=== PATIENT | female | born 1965 | race Caucasian/White ===

== ENCOUNTER 2018-09-14 07:26 | Emergency (ER) | payer BC, OTHER ==
[2018-09-14 07:41] VITALS: TEMP 97.7; BMI 32.0
--- NOTE | 2018-09-14 07:56 | PDOC ---
History of Present Illness - General Chief Complaint: Asthma Stated Complaint: ASTHMA ATTACK Time Seen by Provider: 09/14/18 07:50 Past History - Past Medical History Allergies/Adverse Reactions: Allergies Allergy/AdvReac Type Severity Reaction Status Date / Time prednisone Allergy Verified 09/14/18 07:37 Asthma: Yes COPD: No Psychiatric Problems: Yes (ANXIETY) - Immunization History Immunization Up to Date: Yes - Suicide/Smoking/Psychosocial Hx Smoking History: Never smoked Hx Alcohol Use: No Drug/Substance Use Hx: No *Physical Exam - Vital Signs Last Vital Signs Temp Pulse Resp BP Pulse Ox 97.7 F 110 H 22 H 143/74 96 09/14/18 07:38 09/14/18 07:38 09/14/18 07:38 09/14/18 07:38 09/14/18 07:38 Moderate Sedation - Procedure Monitoring Vital Signs: Procedure Monitoring Vital Signs Temperature 97.7 F 09/14/18 07:38 Pulse Rate 110 H 09/14/18 07:38 Respiratory Rate 22 H 09/14/18 07:38 Blood Pressure 143/74 09/14/18 07:38 O2 Sat by Pulse Oximetry (%) 96 09/14/18 07:38
[2018-09-14] MEDS ORDERED: ALPRAZolam 0.25 MG TABLET PO ONE (08:00)
[2018-09-14] MEDS ORDERED: ALBUTEROL SO4 2.5/IPRATROPIUM 0.5 INH SOL 3 ML VIAL.NEB. NEB ONE (08:03)
[2018-09-14] MEDS ORDERED: ALPRAZolam 0.25 MG TABLET ONE (08:04)
[2018-09-14] MEDS: ALBUTEROL SO4 2.5/IPRATROPIUM 0.5 INH SOL 3 ML VIAL.NEB. NEB SCH ×4 (08:07→08:45)
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
[2018-09-14] MEDS ORDERED: ACETAMINOPHEN 325 MG TABLET (FP) PO ONE (09:21)
[2018-09-14] MEDS ORDERED: LIDOCAINE 5% TOPICAL PATCH TP ONE (09:21)
[2018-09-14] MEDS ORDERED: ACETAMINOPHEN 325 MG TABLET (FP) ONE (09:23)
[2018-09-14] MEDS ORDERED: LIDOCAINE 5% TOPICAL PATCH ONE (09:24)
[2018-09-14 09:33] VITALS: BP 103/59; PULSE 98
--- NOTE | 2018-09-14 15:36 | EKG ---
Test Reason : Blood Pressure : / mmHG Vent. Rate : 089 BPM Atrial Rate : 089 BPM P-R Int : 138 ms QRS Dur : 076 ms QT Int : 374 ms P-R-T Axes : 039 016 -11 degrees QTc Int : 455 ms NORMAL SINUS RHYTHM NORMAL ECG WHEN COMPARED WITH ECG OF 31-OCT-1997 13:31, NO SIGNIFICANT CHANGE WAS FOUND Confirmed by ARUNA CHEN MD ([id number]) on 09/14/2018 3:36:22 PM Referred By: Confirmed By:ARUNA CHEN MD
[2018-09-14] MEDS ORDERED: LIDOCAINE PATCH REMOVAL MC SCH (22:00)
== END 2018-09-14 09:39 | disposition home or self-care (01) ==
LOC: JER 07:26
PROC: 3E0F7GC Introduction of Other Therapeutic Substance into Respiratory Tract, Via Natural or Artificial Opening (ICD-10-PCS; principal; 2018-09-14)
DX: J45.21 Mild intermittent asthma with (acute) exacerbation (principal); F41.8 Other specified anxiety disorders; F32.9 Major depressive disorder, single episode, unspecified
CPT/HCPCS: 93005; 93010; 99282-25